=== PATIENT | male | born 1945 | race Caucasian/White ===

== ENCOUNTER 2017-10-25 13:54 | Emergency (ER) | payer MEDICARE ==
[~2017-10-25] VITALS: Ht 188 cm; Wt 77.1 kg
--- NOTE | 2017-10-25 14:18 | ED.ADGEN ---
Adult General Chief Complaint Chief Complaint Abnormal INR HPI HPI Patient is a 72 [facility] with history of A. fib, currently anticoagulated on coumadin, recurrent lung cancer who presents after [facility]. Patient had routine lab drawn 2 hours ago at his doctor's office. Patient did not have any dizziness bleeding or complaints at that time. He was called in this told that his INR was 12.4 and instructed to go to the hospital. [facility]. [] Review of Systems Review of Systems Review symptoms as per history of present illness. All other review symptoms are negative All other systems were reviewed and found to be within normal limits, except as documented in this note. Allergies Allergies Allergies Coded Allergies Type Severity Reaction Last Updated Verified No Known Drug Allergies 10/25/17 No Physical Exam Physical Exam Constitutional: Well developed, well nourished, no acute distress, non-toxic appearance. [] HENT: Normocephalic, atraumatic, bilateral external ears normal. [] Eyes: PERRLA, EOMI, conjunctiva normal. [] Neck: Normal range of motion. [] Cardiovascular:Heart rate regular rhythm, no murmur. [] Lungs & Thorax: Bilateral breath sounds clear to auscultation .[] Abdomen: Bowel sounds normal, soft, no tenderness. [] Skin: Warm, dry, no erythema, no rash. [] Back: No tenderness. [] Extremities: No tenderness, no edema. [] Neurologic: Alert and oriented X 3, normal motor function, normal sensory function, no focal deficits noted. [] Psychologic: Affect normal, judgement normal, mood normal. [] Current Patient Data Vital Signs Vital Signs Date Time Temp Pulse Resp B/P (MAP) Pulse Ox O2 Delivery O2 Flow Rate FiO2 10/25/17 13:54 98.2 83 20 96 Room Air Lab Results Laboratory Tests Test 10/25/17 14:32 White Blood Count 19.6 x10^3/uL (4.0-11.0) H Red Blood Count 2.90 x10^6/uL (4.30-5.70) L Hemoglobin 8.5 g/dL (13.0-17.5) L Hematocrit 25.5 % (39.0-53.0) L Mean Corpuscular Volume 88 fL (79-100) Mean Corpuscular Hemoglobin 29 pg (25-35) Mean Corpuscular Hemoglobin Concent 33 g/dL (31-37) Red Cell Distribution Width 22.4 % (11.5-14.5) H Platelet Count 799 x10^3/uL (140-400) H Neutrophils (%) (Auto) 90 % (31-73) H Lymphocytes (%) (Auto) 4 % (24-48) L Monocytes (%) (Auto) 6 % (0-9) Eosinophils (%) (Auto) 0 % (0-3) Basophils (%) (Auto) 0 % (0-3) Neutrophils # (Auto) 17.6 x10^3uL (1.8-7.7) H Lymphocytes # (Auto) 0.7 x10^3/uL (1.0-4.8) L Monocytes # (Auto) 1.1 x10^3/uL (0.0-1.1) Eosinophils # (Auto) 0.0 x10^3/uL (0.0-0.7) Basophils # (Auto) 0.1 x10^3/uL (0.0-0.2) Platelet Estimate Pending Prothrombin Time > 120.0 SEC (9.4-11.4) H Prothrombin Time INR > 10.0 (0.9-1.1) *H Sodium Level 135 mmol/L (136-145) L Potassium Level 4.5 mmol/L (3.5-5.1) Chloride Level 100 mmol/L (98-107) Carbon Dioxide Level 30 mmol/L (21-32) Anion Gap 5 (6-14) L Blood Urea Nitrogen 27 mg/dL (8-26) H Creatinine 1.0 mg/dL (0.7-1.3) Estimated GFR (Cockcroft-Gault) 73.7 Glucose Level 128 mg/dL (70-99) H Calcium Level 10.2 mg/dL (8.5-10.1) H EKG EKG [] Radiology/Procedures Radiology/Procedures [] Course & Med Decision Making Course & Med Decision Making Pertinent Labs and Imaging studies reviewed. (See chart for details) [Elevated INR. No active bleeding. Patient accepted to [facility]. Labs pending. ] Final Impression Final Impression [1. Elevated INR] Dragon Disclaimer Dragon Disclaimer This electronic medical record was generated, in whole or in part, using a voice recognition dictation system. MILLY CRAMER DO Oct 25, 2017 14:18
[2017-10-25 14:44] LABS: BASO # 0.1 x10^3/uL (0.0-0.2); BASO % 0 % (0-3); EOS % 0 % (0-3); HEMATOCRIT 25.5 % (39.0-53.0); HEMOGLOBIN 8.5 g/dL (13.0-17.5); LYMPH # 0.7 x10^3/uL (1.0-4.8); LYMPH % 4 % (24-48); MEAN CORPUSCULAR HEMOGLOBIN 29 pg (25-35); MEAN CORPUSCULAR HGB CONC 33 g/dL (31-37); MEAN CORPUSCULAR VOLUME 88 fL (79-100); MONO # 1.1 x10^3/uL (0.0-1.1); MONO % 6 % (0-9); NEUT # 17.6 x10^3uL (1.8-7.7); NEUT % 90 % (31-73); PLATELET COUNT 799 x10^3/uL (140-400); RED CELL DISTRIBUTION WIDTH 22.4 % (11.5-14.5); WHITE BLOOD COUNT 19.6 x10^3/uL (4.0-11.0)
[2017-10-25 14:52] LABS: CALCIUM 10.2 mg/dL (8.5-10.1); GFR 73.7; POTASSIUM 4.5 mmol/L (3.5-5.1)
[2017-10-25 15:22] VITALS: BP 110/59
[2017-10-25 15:24] LABS: % BANDS 3 % (0-9); % BASOS 0 % (0-3); % EOS 0 % (0-5); % LYMPHS 4 % (24-48); % MONOS 4 % (0-10); % SEGS 89 % (35-66); ANISOCYTOSIS MOD; HYPOCHROMIA SLIGHT; MICROCYTOSIS PRESENT; OVALOCYTES PRESENT; PLATELET CLUMP PRESENT; PLT ESTIMATE INCREASED (ADEQUATE); POLYCHROMASIA PRESENT
== END 2017-10-25 15:22 | disposition short-term general hospital (02) ==
LOC: ER 13:54
DX: R79.1 Abnormal coagulation profile (principal); I48.91 Unspecified atrial fibrillation
CPT/HCPCS: 36415; 80048; 85007; 85025; 85610; 99285